=== PATIENT | female | born 1955 | race Caucasian/White ===

== ENCOUNTER 2020-01-20 12:10 | Outpatient (CLI) | payer MEDICAID, SELFPAY ==
--- NOTE | 2020-01-20 | CT_ITS ---
WS: [id number] LDCT LUNG CANCER SCREENING TECHNIQUE: Noncontrast CT of the chest with coronal and sagittal reformatted images. CLINICAL INFORMATION: TOBACCO DEPENDENCE COMPARISON: None. DLP: 78.73 mGy.cm DIvol: 2.[address] scans at [facility] use at least one of these dose optimization techniques: automat ed exposure control; mA and/or kV adjustment per patient size (includes targeted exams where dose is matched to clinical indication); or iterative reconstruction. FINDINGS: Mild chronic emphysematous changes. Fibrosis in the lung apices. Calcified granuloma right upper lobe . 5 mm noncalcified subpleural nodule left upper lobe. 3 mm noncalcified nodule left lower lobe. No a xillary lymphadenopathy. Normal caliber thoracic aorta. Calcified mediastinal and right hilar lymph n odes. Partially visualized left adrenal nodule likely adenoma measuring 2.5 CM. This appears unchanged [facility] e CTA CT/CT lung screening [id number] IMPRESSION: LUNG-RADS: 2-Benign Appearance or Behavior FOLLOW UP: 12 Month: Continue annual screening with LDCT
--- NOTE | 2020-01-20 12:54 | MM_ITS ---
WS: [id number] BILATERAL DIGITAL DIAGNOSTIC MAMMOGRAM MAMMOGRAPHY WITH CAD CLINICAL INFORMATION: LEFT BREAST CYST COMPARISON: January 20, 2020 TECHNIQUE: Bilateral CC, MLO, and ML views. FINDINGS: The breasts are composed of heterogeneous fibroglandular density, which can limit the detection of sm all underlying mass lesions. A few punctate calcifications. Peripherally calcified ovoid lesion likel y benign cyst at the 6:00 position. This is present previously but better seen today. Right breast is unchanged and unremarkable. ULTRASOUND BREAST LEFT TECHNIQUE: Ultrasound left breast focused area of concern. CLINICAL INFORMATION: LEFT BREAST CYST FINDINGS: Ultrasound left breast the 6 clock position. Today the previously described hypoechoic lesion appears to represent a simple cyst unchanged in size measuring 7.5 x 4.2 x 8.3 mm this has a benign appearan ce. MM/[place] [id number] IMPRESSION: BI-RADS: 2-Benign FOLLOW UP: 1 Year Follow-up Recommend return to annual screening mammography.
== END 2020-01-20 12:11 | disposition home or self-care (01) ==
PROVIDERS: PCP Family Medicine; Visit Provider Family Medicine
DX: Z12.2 Encounter for screening for malignant neoplasm of respiratory organs (principal); F17.210 Nicotine dependence, cigarettes, uncomplicated; N60.02 Solitary cyst of left breast
CPT/HCPCS: 76642; 77066; G0297

== ENCOUNTER 2021-01-18 13:27 | Outpatient (CLI) | payer MEDICARE, MEDICAID, SELFPAY ==
--- NOTE | 2021-01-18 13:43 | CT_ITS ---
WS: [id number] LDCT LUNG CANCER SCREENING TECHNIQUE: Noncontrast CT of the chest with coronal and sagittal reformatted images. CLINICAL INFORMATION: TOBACCO DEPENDENCE COMPARISON: CT January 20, 2020 DLP: 51.42 mGy.cm DIvol: 1.[address] scans at [facility] use at least one of these dose optimization techniques: automat ed exposure control; mA and/or kV adjustment per patient size (includes targeted exams where dose is matched to clinical indication); or iterative reconstruction. FINDINGS: No acute pulmonary infiltrates. No focal pneumonia or pleural fluid. No mediastinal or hilar lymphade nopathy. Calcified right hilar lymph nodes. Normal caliber thoracic aorta. Aortic calcification. Mild coronary calcification. Noncalcified subpleural nodule left upper lobe measuring 5 mm stable. 3 mm nodule left lower lobe is stable. Calcified granuloma right upper lobe. Fibrosis in the lung apices. Stable 2.5 cm left adrenal adenoma. Normal thoracic spine. CT/CT lung screening [id number] IMPRESSION: LUNG-RADS: 2-Benign Appearance or Behavior FOLLOW UP: 12 Month: Continue annual screening with LDCT
== END 2021-01-18 13:28 | disposition home or self-care (01) ==
PROVIDERS: PCP Family Medicine; Visit Provider Family Medicine
DX: R91.1 Solitary pulmonary nodule (principal); D35.02 Benign neoplasm of left adrenal gland; F17.210 Nicotine dependence, cigarettes, uncomplicated
CPT/HCPCS: 71271

== ENCOUNTER 2021-08-15 12:07 | Outpatient (CLI) | payer MEDICARE, MEDICAID, SELFPAY ==
--- NOTE | 2021-08-15 13:06 | MM_ITS ---
WS: [id number] BILATERAL 3D TOMOSYNTHESIS DIGITAL SCREENING MAMMOGRAPHY WITH CAD CLINICAL INFORMATION: SCREENING HISTORY: Screening mammogram. No current complaints. COMPARISON: January 20, 2020 TECHNIQUE: Bilateral CC and MLO views. FINDINGS: Scattered fibroglandular densities bilaterally. Punctate and lucent centered calcifications. Stable n odular breast tissue bilaterally. A few incidental intramammary lymph nodes. No suspicious focal mass , asymmetry, calcifications, or architectural distortion. No evidence of malignancy. MM/[place] [id number] IMPRESSION: BI-RADS: 2-Benign FOLLOW UP: 1 Year Follow-up Recommend return to annual screening mammography.
== END 2021-08-15 12:08 | disposition home or self-care (01) ==
LOC: RAD 12:12
PROVIDERS: PCP Family Medicine; Visit Provider Family Medicine
DX: Z12.31 Encounter for screening mammogram for malignant neoplasm of breast (principal)
CPT/HCPCS: 77063; 77067

== ENCOUNTER 2022-03-20 14:11 | Outpatient (CLI) | payer MEDICARE, MEDICAID, SELFPAY ==
--- NOTE | 2022-03-20 14:30 | USCV_ITS ---
Reedhernesto Susana Age: 66 Gender: F : 1955 Exam Date: 03/20/2022 14:21 Ordering Phys: Jasmina Jeffers MD ([email or web address]) Technologist: CT [place] [facility] [place]: claud[place] Risk Factors: Previous Vascular Surgery: RIGHT LEFT BP: 138.0 / 84.00 BP: 142.0/ 70.00 0 0 Waveform Velocity (cm/s) Velocity (cm/s) Waveform Triphasic 155.4 Iliac Prox 74.3 Biphasic Triphasic 149.5 Iliac Mid 77.9 Triphasic Triphasic 146.1 Iliac Distal 83.6 Biphasic Triphasic 94.6 ADMINISTRATIVE VOLUNTEER 48.9 Biphasic Biphasic 78.8 SFA Prox 56.7 Biphasic Biphasic 79.7 SFA Mid 42.7 Biphasic Biphasic SFA Dist Biphasic 77.8 41.3 Biphasic 43.6 POP 25.7 Biphasic Biphasic 46.9 MOLDING MACHINE SETTER 26.1 Biphasic Biphasic 54.2 DPA 17.1 Biphasic 1.1 NAUN 0.7 FINDINGS Diffuse plaque in the iliac and femoral artery on the right side Diminished Doppler flow velocities at and below the level of the common femoral artery on the left side. Moderate to heavy heterogenous irregular plaques at the common femoral artery on the left side. Resting NAUN of 0.7 on the left and 1.1 on the right CONCLUSIONS 1. Abnormal resting NAUN and Doppler waveforms on the left suggesting hemodynamically significant stenosis at the iliofemoral level . 2. Normal resting NAUN and near Doppler waveforms and velocities suggesting no significant arterial obstruction on the right side Dr Ivonne Gallo MD [facility] (Electronically Signed) Final Date: 22 March 2022 19:48 S
== END 2022-03-20 14:12 | disposition home or self-care (01) ==
LOC: RAD 14:14
PROVIDERS: PCP Nurse Practitioner Family; Visit Provider Internal Medicine Cardiovascular Disease
DX: I73.9 Peripheral vascular disease, unspecified (principal); F17.210 Nicotine dependence, cigarettes, uncomplicated
CPT/HCPCS: 93005; 93925; 99214

== ENCOUNTER 2022-04-24 13:11 | Outpatient (CLI) | payer MEDICARE, MEDICAID, SELFPAY ==
--- NOTE | 2022-04-24 13:30 | CT_ITS ---
WS: [id number] CT ANGIOGRAPHY OF THE ABDOMINAL AORTA WITH RUNOFF TO THE ANKLES HISTORY: Significant stenosis at the iliofemoral level TECHNIQUE: Arterial injection is performed during imaging to evaluate the aorta and runoff vessels to the ankles. MIP and volume rendering imaging has also been performed. All images are reviewed. All C T scans at [facility] use at least one of these dose optimization techniques: automated exposu re control; mA and/or kV adjustment per patient size (includes targeted exams where dose is matched t o clinical indication); or iterative reconstruction. Contrast: Omnipaque 350; 95 mL IV. DLP: 697.40 mGy.cm COMPARISON: Duplex ultrasound 03/20/2022. Prior runoff 03/20/2019 Lung bases are clear. No cardiomegaly. Abdominal aorta: Atherosclerotic plaque with no aneurysm. No plaque ulceration. Origin of the SMA and celiac axis are normal. Normal renal arteries with normal renal enhancement. Accessory renal artery on the RIGHT. ZURI is intact. Focal stenosis involving the distal aorta 8 mm. RIGHT lower extremity arterial system: Common iliac artery, internal and external iliacs remain paten t. Mixture of calcified plaque and intimal thickening. SFA and deep profunda are normal. Normal popli teal artery. Tibioperoneal trunk is normal. Three-vessel runoff to the ankle is adequate. Distally th e vessels are less well opacified due to injection timing. LEFT lower extremity arterial system: Scattered plaque and intimal thickening LEFT common iliac arter y. Short segment stent involving the external iliac artery. Small caliber lumen through this stent. D istal to the stent mild atherosclerotic plaque. Deep profunda and SFA are normal. The popliteal arter y is normal. Good runoff below the knee via all 3 vessels. The distal artery opacification is limited secondary to timing of the bolus. Normal liver, gallbladder and spleen on this early enhancement. Gallbladder wall calcification or sma ll stone in the gallbladder. Normal pancreas. Well-circumscribed LEFT adrenal mass measures 3.0 x 2.5 cm is probably an adenoma. Not significantly increased in size since 2019. No GI tract obstruction. No inflammation. No adenopathy or ascites. Prior hysterectomy. CT/CT angio abd aorta runof [id number] IMPRESSION: 1. LEFT external iliac artery short stent. The stent lumen is difficult to vis ualize due to the stent but there is contrast distal to the stent. No occlusion . 2. Atherosclerotic plaque bilaterally throughout the lower extremity arteries but there is no high-grade stenosis or occlusion. 3. Mild atherosclerosis aorta with no aneurysm. 4. Normal enhancement of each kidney. 5. LEFT adrenal mass is stable. Probably an adenoma.
[2022-04-24] MEDS: iohexol 350 mg/mL 500 mL Btl (per mL) IV (14:06)
== END 2022-04-24 13:12 | disposition home or self-care (01) ==
LOC: RAD 13:15
PROVIDERS: PCP Nurse Practitioner Family; Visit Provider Internal Medicine Cardiovascular Disease
DX: I73.9 Peripheral vascular disease, unspecified (principal); I70.90 Unspecified atherosclerosis; I70.0 Atherosclerosis of aorta; D49.7 Neoplasm of unspecified behavior of endocrine glands and other parts of nervous system
CPT/HCPCS: 75635; Q9967

== ENCOUNTER → 2022-08-17 14:34 | Outpatient (BNVA) | payer MEDICARE, MEDICAID, SELFPAY | PROVIDERS: PCP Nurse Practitioner Family; Visit Provider Internal Medicine Cardiovascular Disease | DX: I10 Essential (primary) hypertension (principal); I73.9 Peripheral vascular disease, unspecified; F17.210 Nicotine dependence, cigarettes, uncomplicated | CPT/HCPCS: 99214 ==

== ENCOUNTER → 2023-07-16 13:40 | Outpatient (BNVA) | payer MEDICARE, MEDICAID, SELFPAY | PROVIDERS: PCP Nurse Practitioner Family; Visit Provider Nurse Practitioner Family | DX: L72.0 Epidermal cyst (principal); L82.1 Other seborrheic keratosis; L57.0 Actinic keratosis; D48.5 Neoplasm of uncertain behavior of skin; L57.8 Other skin changes due to chronic exposure to nonionizing radiation | CPT/HCPCS: 11102; 17000; 99203 ==

== ENCOUNTER → 2023-10-11 14:45 | Outpatient (BNVA) | payer MEDICARE, MEDICAID, SELFPAY | PROVIDERS: PCP Nurse Practitioner Family; Visit Provider Nurse Practitioner Family | DX: D04.39 Carcinoma in situ of skin of other parts of face (principal); L85.3 Xerosis cutis; L82.1 Other seborrheic keratosis; D69.2 Other nonthrombocytopenic purpura | CPT/HCPCS: 99213 ==

== ENCOUNTER → 2023-11-15 13:33 | Outpatient (BNVA) | payer MEDICAID, OTHER, SELFPAY | PROVIDERS: PCP Nurse Practitioner Family; Visit Provider Internal Medicine Cardiovascular Disease | DX: I25.10 Atherosclerotic heart disease of native coronary artery without angina pectoris (principal); I10 Essential (primary) hypertension; E78.5 Hyperlipidemia, unspecified; I73.9 Peripheral vascular disease, unspecified; Z87.891 Personal history of nicotine dependence | CPT/HCPCS: 99213 ==

== ENCOUNTER 2023-12-31 16:06 | Outpatient (CLI) | payer OTHER, MEDICAID, SELFPAY ==
--- NOTE | 2023-12-31 16:30 | USCV_ITS ---
Susana Tian Age: 68 Gender: F : 1955 Exam Date: 12/31/2023 16:17 Ordering Phys: Amy Mares MD ([email or web address]) Technologist: [place] [facility] [place]: Risk Factors: Previous Vascular Surgery: RIGHT LEFT BP: 127.0 / 78.00 BP: / 0 Waveform Velocity (cm/s) Velocity (cm/s) Waveform Triphasic 108.0 Iliac Prox Triphasic 147.5 Iliac Mid Triphasic Iliac Distal 100.3 Triphasic 126.0 BUN MACHINE OPERATOR Triphasic 106.0 SFA Prox Triphasic 83.0 SFA Mid Triphasic 69.0 SFA Dist Triphasic 53.0 POP Biphasic 47.0 PULPER Biphasic 53.0 DPA 1.0 NAUN FINDINGS Resting NAUN 1.0 on the right side. Normal arterial Doppler waveforms and velocities CONCLUSIONS Normal resting NAUN on the right side. No evidence of any significant arterial obstruction, based on the above findings. Dr Ivonne Gallo MD [facility] (Electronically Signed) Final Date: 02 January 2024 22:43 S
== END 2023-12-31 16:07 | disposition home or self-care (01) ==
LOC: RAD 16:06
PROVIDERS: PCP Nurse Practitioner Family; Visit Provider Internal Medicine Cardiovascular Disease
DX: I73.9 Peripheral vascular disease, unspecified (principal); M79.604 Pain in right leg
CPT/HCPCS: 93926

== ENCOUNTER → 2024-06-10 14:34 | Outpatient (BNVA) | payer MEDICAID, MEDICARE, SELFPAY | PROVIDERS: PCP Nurse Practitioner Family; Visit Provider Nurse Practitioner Family | DX: L71.8 Other rosacea (principal); K13.0 Diseases of lips; Z08 Encounter for follow-up examination after completed treatment for malignant neoplasm; Z85.828 Personal history of other malignant neoplasm of skin; L72.0 Epidermal cyst; R20.8 Other disturbances of skin sensation; R23.8 Other skin changes; R20.9 Unspecified disturbances of skin sensation; L82.0 Inflamed seborrheic keratosis | CPT/HCPCS: 10060; 17110; 99214 ==

== ENCOUNTER → 2024-06-16 14:00 | Outpatient (BNVA) | payer MEDICARE, MEDICAID, SELFPAY | PROVIDERS: PCP Nurse Practitioner Family; Visit Provider Internal Medicine Cardiovascular Disease | DX: I25.10 Atherosclerotic heart disease of native coronary artery without angina pectoris (principal); R07.9 Chest pain, unspecified; I73.9 Peripheral vascular disease, unspecified; R06.02 Shortness of breath | CPT/HCPCS: 99214 ==

== ENCOUNTER 2024-07-08 07:57 | Outpatient (CLI) | payer MEDICARE, MEDICAID, SELFPAY ==
--- NOTE | 2024-07-08 | ECG_ITS ---
[facility] Test Date: 2024-07-08 Pat Name: Susana Tian Department: Room: Gender: Female Manager Helpdesk: : 1955 Requested By: Amy Mares Order Number: [id number] Reading MD: Interpretive Statements Lung unchanged pre/post procedure; Intraprocedure shortess of breath [email or web address] [id number]
--- NOTE | 2024-07-08 08:11 | NMCV_ITS ---
NM broderick perf SPECT r/s* [id number] Susana Tian Age: 69 Gender: F : 1955 Exam Date: 07/08/2024 09:27 Ordering Phys: Amy Mares MD ([email or web address]) Technologist: DANNY Fang Exam Location: [facility] Indications: cp STRESS TEST [facility] IMAGE PROTOCOL Rest/Stress 1 Lexiscan Day Radiopharmaceutical Dose (mCi) Administration Site Administered by Rest: Tc-99m 10.6 IV DANNY Fang Sestamibi Stress:Tc-99m 33 IV Sestamibi Rest: 08-Jul-2024 60 Discovery 630 Stress: 08-Jul-2024 30 Discovery 630 0.4mg Lexiscan. Images obtained in supine and prone position. SPECT RESULTS Technical Quality: Good Raw Data Analysis: Normal Image Corrections: No attenuation or motion correction applied Summed Stress Score: 1 Summed Rest Score: 0 Summed Difference Score: 1 PERFUSION FINDINGS A small area of slightly decreased tracer uptake was noted in the mid inferolateral region with the supine imaging. No significant abnormalities were noted with the prone imaging. FUNCTIONAL RESULTS (calculated via Gated SPECT) Stress Image LV EF (%): 85 Stress EDV (mL):59 TID: 0.94 Stress ESV (mL):9 FUNCTIONAL FINDINGS: Segmental wall motion analysis revealing no gross wall motion abnormalities IMPRESSIONS 1. Myocardial perfusion imaging revealing a small area of slightly decreased tracer uptake in the mid inferolateral region with the supine imaging. However with the prone imaging, no significant perfusion abnormalities were noted. This may represent most likely an elevation artifact. 2. Normal LV ejection fraction of 85%. 3. LV wall motion analysis revealing no gross wall motion abnormalities. 4. Normal LV volume Possibly no significant coronary ischemia, based on the above findings Dr Ivonne Gallo MD [facility] (Electronically Signed) Final Date: 08 July 2024 16:58 S
[2024-07-08 08:22] VITALS: BMI 28.2
[2024-07-08] MEDS: regadenoson 0.4 Mg/5 ml Syringe IVP (10:02)
[2024-07-08 10:21] VITALS: BP 144/67; PULSE 86
== END 2024-07-08 07:58 | disposition home or self-care (01) ==
LOC: CDL 08:00
PROVIDERS: PCP Nurse Practitioner Family; Visit Provider Internal Medicine Cardiovascular Disease
DX: R07.9 Chest pain, unspecified (principal)
CPT/HCPCS: 78452; 93017; A9500; J2785

== ENCOUNTER 2024-10-31 15:37 | Outpatient (CLI) | payer MEDICARE, MEDICAID, SELFPAY ==
--- NOTE | 2024-10-31 16:00 | US_ITS ---
WS: [id number] Ultrasound soft tissue RIGHT groin INDICATION: Inguinal bulge TECHNIQUE: Ultrasound RIGHT groin area of concern FINDINGS: Ultrasound RIGHT groin area of concern. No evidence of herniated small bowel or inguinal hernia in the area of concern. Small incidental lymph node in this area. No fluid collections. No other suspicious findings. US/US soft tissue/extremity [id number] IMPRESSION: No evidence of inguinal hernia in the area of concern.
== END 2024-10-31 15:38 | disposition home or self-care (01) ==
LOC: RAD 15:39
PROVIDERS: PCP Nurse Practitioner Family; Visit Provider Nurse Practitioner Family
DX: R19.09 Other intra-abdominal and pelvic swelling, mass and lump (principal); R59.0 Localized enlarged lymph nodes
CPT/HCPCS: 76882

== ENCOUNTER → 2024-11-27 14:07 | Outpatient (BNVA) | payer MEDICARE, MEDICAID, SELFPAY | PROVIDERS: PCP Nurse Practitioner Family; Referring Provider Nurse Practitioner Family; Visit Provider Student in an Organized Health Care Education/Training Program | DX: R10.31 Right lower quadrant pain (principal) | CPT/HCPCS: 99203 ==

== ENCOUNTER 2024-12-15 14:08 | Outpatient (CLI) | payer OTHER, MEDICAID, SELFPAY ==
--- NOTE | 2024-12-15 14:11 | CT_ITS ---
WS: [id number] CT ABDOMEN AND PELVIS WITH CONTRAST HISTORY: right groin pain TECHNIQUE: Imaging performed of the abdomen and pelvis with IV contrast. Single phase imaging of the abdomen. Coronal and sagittal reformats are submitted. All CT scans at [facility] use at least one of these dose optimization techniques: automated exposure control; mA and/or kV adjustment per patient size (includes targeted exams where dose is matched to clinical indication); or iterative reconstruction. IV CONTRAST: Omnipaque 350; 100 mL IV. Oral contrast: No DLP: 665.65 mGy.cm COMPARISON: 03/20/2019, 04/24/2022 Lower thorax: Lung bases are clear. Heart is normal size. No hiatal hernia. Liver/biliary system: Normal size with no intrahepatic dilatation. Gallbladder: Contracted gallbladder small stones versus wall calcification. Contraction is probably due to nonfasting state. There is very mild wall enhancement but there is no adjacent inflammation. Pancreas: Normal size pancreas and pancreatic duct. No adjacent inflammation. Spleen: Normal size spleen. No mass or infarct. Adrenal glands: Normal RIGHT adrenal gland. Low-attenuation mass in the LEFT adrenal gland measures 3.1 x 2.6 cm with minimal increase in size since 2018. Right kidney: Normal size kidney. Nonobstructing calcifications lower pole. Left kidney: Normal. Aorta: Mild atherosclerosis with no aneurysm. Lymphadenopathy: None. Free fluid: None. GI tract: Nondistended stomach. No small bowel obstruction. Appendix is normal. No colitis. Mild sigmoid diverticular disease without acute diverticulitis. Abdominal wall: Fat-containing umbilical hernia. Additional very small defects in the supra umbilical abdominal wall are identified. Small amount of fat herniating through the defects. Pelvis: No free fluid or adenopathy within the pelvis. No adenopathy. No inguinal hernia. No fat stranding. Bones: Degenerative scoliosis lumbar spine with asymmetric disc space narrowing at L3-4. CT/CT abdomen pelvis w con* [id number] IMPRESSION: 1. No inguinal hernia. No mass along the RIGHT inguinal canal in the area of p ain. 2. Fat-containing umbilical and supraumbilical abdominal wall hernias. 3. Mild sigmoid diverticulosis without acute diverticulitis. 4. Normal appendix. 5. Contracted gallbladder with mild wall enhancement. Stone versus wall calcif ication suspected. 6. Long-term stability LEFT adrenal mass which is likely an adenoma.
[2024-12-15 14:35] LABS: Blood Urea Nitrogen 7 mg/dL (8-23)
[2024-12-15] MEDS: iohexol 350 mg/mL 500 mL Btl (per mL) IV (14:47)
== END 2024-12-15 14:09 | disposition home or self-care (01) ==
LOC: RAD 14:09
PROVIDERS: PCP Nurse Practitioner Family; Visit Provider Student in an Organized Health Care Education/Training Program
DX: R10.31 Right lower quadrant pain (principal)
CPT/HCPCS: 74177; 82565; 84520

== ENCOUNTER → 2024-12-22 15:40 | Outpatient (BNVA) | payer OTHER, MEDICAID, SELFPAY | PROVIDERS: PCP Nurse Practitioner Family; Visit Provider Nurse Practitioner Family | DX: L71.8 Other rosacea (principal); L57.8 Other skin changes due to chronic exposure to nonionizing radiation; Z08 Encounter for follow-up examination after completed treatment for malignant neoplasm; Z85.828 Personal history of other malignant neoplasm of skin; L72.0 Epidermal cyst | CPT/HCPCS: 10060; 99214 ==

== ENCOUNTER 2025-02-05 11:51 | Outpatient (CLI) | payer MEDICAID, MEDICARE, SELFPAY ==
--- NOTE | 2025-02-05 11:58 | XR_ITS ---
WS: [id number] SCREENING DEXA SCAN [place] CLINICAL INFORMATION: MENOPAUSE COMPARISON: None. FINDINGS: The L1-L4 bone mineral density measures 0.935 g/cm2. This corresponds to a T score score of -2.0 and Z score of -1.1. Left femoral neck bone mineral density measures 0.725 g/cm2. This corresponds to a T score of -2.2 and Z score of -1.3. Right femoral neck bone mineral density measures 0.729 g/cm2. This corresponds to a T score -2.2of and Z score of -1.3. Mean femoral neck bone mineral density measures 0.727 g/cm2. This corresponds to a T score of -2.2 and Z score of -1.3. XR/XR DEXA axial skeleton* [id number] IMPRESSION: Osteopenia lumbar spine. Osteopenia femoral necks. Patient's FRAX calculated 10 year probability for major osteoporotic fracture i s 14.5% and osteoporotic hip fracture is 5.1%.
--- NOTE | 2025-02-05 11:58 | CT_ITS ---
WS: [id number] LDCT LUNG CANCER SCREENING TECHNIQUE: Noncontrast CT of the chest with coronal and sagittal reformatted images. CLINICAL INFORMATION: NICOTINE DEPENDENCE,CIGARETTES COMPARISON: 2020 DLP: 81.60 mGy.cm DIvol: Mean CTDIvol: 1.80 (mGy) All CT scans at [facility] use at least one of these dose optimization techniques: automated exposure control; mA and/or kV adjustment per patient size (includes targeted exams where dose is matched to clinical indication); or iterative reconstruction. FINDINGS: New 6.3 mm nodule LEFT lung apex anteriorly. Recommend 6-month follow-up. Stable noncalcified subpleural nodule left upper lobe measuring 5 mm stable. 3 mm nodule left lower lobe is stable. Calcified granuloma right upper lobe. Fibrosis in the lung apices. No mediastinal or hilar lymphadenopathy. Calcified right hilar lymph nodes. No axillary lymphadenopathy. Normal caliber thoracic aorta. Aortic calcification. Mild coronary calcification. Stable 3.0 cm cm left adrenal adenoma. Mild thoracic curve. Nodular RIGHT breast tissue. More focal nodule in the lower outer RIGHT breast measuring 10 mm. Recommend RIGHT breast diagnostic mammography and ultrasound. CT/CT lung screening [id number] IMPRESSION: Nodular RIGHT breast tissue. More focal nodule in the lower outer RIGHT breast measuring 10 mm. Recommend RIGHT breast diagnostic mammography and ultrasound. New 6.3 mm nodule LEFT lung apex anteriorly. Recommend 6-month follow-up. LUNG-RADS: 3S-Probably Benign with Significant Findings FOLLOW UP: 6 Month LDCT
--- NOTE | 2025-02-05 11:59 | MM_ITS ---
WS: [id number] BILATERAL SCREENING DIGITAL TOMOSYNTHESIS MAMMOGRAM WITH CAD HISTORY: ANNUAL SCREEN COMPARISON: 08/15/2021, 01/20/2020 Bilateral CC and MLO views with tomosynthesis and synthetic mammography submitted. Computer aided detection analyzed. Breast composition: The breasts are heterogeneously dense, which may obscure small masses. No suspicious masses, microcalcifications or architectural distortion. Scattered asymmetries and calcifications are stable. MM/MM scr BI tomosynthesis [id number] IMPRESSION: BI-RADS: 2 - Benign FOLLOW UP: 1 Year Follow-up
== END 2025-02-05 11:52 | disposition home or self-care (01) ==
LOC: RAD 11:54
PROVIDERS: PCP Nurse Practitioner Family; Visit Provider Nurse Practitioner Family
DX: Z12.31 Encounter for screening mammogram for malignant neoplasm of breast (principal); Z12.2 Encounter for screening for malignant neoplasm of respiratory organs; Z87.891 Personal history of nicotine dependence; R92.333 Mammographic heterogeneous density, bilateral breasts; R92.1 Mammographic calcification found on diagnostic imaging of breast; N64.89 Other specified disorders of breast; R91.1 Solitary pulmonary nodule; I70.0 Atherosclerosis of aorta; J84.10 Pulmonary fibrosis, unspecified; M40.04 Postural kyphosis, thoracic region
CPT/HCPCS: 71271; 77063; 77067; 77080

== ENCOUNTER 2025-03-02 13:47 | Outpatient (CLI) | payer MEDICARE, MEDICAID, SELFPAY ==
--- NOTE | 2025-03-02 13:54 | MM_ITS ---
WS: [id number] RIGHT 3D TOMOSYNTHESIS DIGITAL MAMMOGRAPHY WITH CAD CLINICAL INFORMATION: BREAST NODULE/ABNORMAL CT LUNG SCREEN HISTORY: Nodule on recent lung CT screening COMPARISON: Mammogram 02/05/[address] 02/05/25 TECHNIQUE: 3 views of the right breast were obtained. FINDINGS: The right breast is composed of heterogeneous fibroglandular density tissue, which can limit the detection of small underlying mass lesions. Nodule seen on the lung screening CT is difficult to visualize on the diagnostic mammogram. Parenchymal nodularity in the lower outer RIGHT breast. Ultrasound described below. ULTRASOUND BREAST RIGHT TECHNIQUE: Ultrasound right breast focused area of concern. CLINICAL INFORMATION: BREAST NODULE/ABNORMAL CT LUNG SCREEN FINDINGS: Ultrasound lower outer RIGHT breast. Benign cyst at the 9 o'clock position 2 cm from the nipple measuring 4 x 4 x 2 mm. No other suspicious findings. No suspicious findings to target for biopsy. Recommend return to annual screening mammography. MM/MM diag RT tomosynthesis [id number] IMPRESSION: DENSITY: The breasts are heterogeneously dense, which may obscure small masses. BI-RADS: 2 - Benign FOLLOW UP: 1 Year Follow-up Recommend return to annual screening mammography.
== END 2025-03-02 13:48 | disposition home or self-care (01) ==
LOC: RAD 13:47
PROVIDERS: PCP Nurse Practitioner Family; Visit Provider Nurse Practitioner Family
DX: N60.01 Solitary cyst of right breast (principal); R91.8 Other nonspecific abnormal finding of lung field; R92.333 Mammographic heterogeneous density, bilateral breasts; R92.323 Mammographic fibroglandular density, bilateral breasts
CPT/HCPCS: 76642; 77061; G0279